=== PATIENT | male | born 1995 | race Hispanic/Latino ===

== ENCOUNTER 2025-06-21 19:56 | Emergency (ER) | payer SELFPAY ==
[2025-06-21] MEDS ORDERED: HYDROcodone/Acetaminophen 5/325 mg Tablet ONE (20:28)
[2025-06-21] MEDS ORDERED: Methocarbamol 500 MG TAB ONE (20:28)
== END 2025-06-21 21:02 | disposition home or self-care (01) ==
LOC: CSHERS 19:56
DX: S83.92XA Sprain of unspecified site of left knee, initial encounter (principal); X58.XXXA Exposure to other specified factors, initial encounter
CPT/HCPCS: 99283